=== PATIENT | male | born 1955 | race Caucasian/White ===

== ENCOUNTER 2016-03-13 17:24 | Emergency (ER) | payer MEDICARE, MEDICAID ==
[~2016-03-13] VITALS: Ht 180.3 cm; Wt 109.1 kg
[~2016-03-13 17:24] MED LIST: ALBUTEROL1.25 MG/3 IH; ASPI325T6; ASPIRIN 81M81 MG/TA2 PO; BYSTOLIC5 MG PO; CANA100T PO; CRESTOR20 MG PO; DAZIDOX10 MG PO; DIABETA 5MG5 MG/TAB PO; DILAUDID 4MG TAB4 MG PO; KLOR-CON M2020 MEQ PO; LANTUS100 U/ML SQ; LASIX 20MG TABL20 MG PO; LIDOCAINE HCL100 M1 PO; LOPRESSOR 225 MG/TAB PO; LORTAB 10/500 51 TAB PO; LOVAZA1 GM PO; LOVENOX150 MG/ML SC; NEURONTIN100 MG/CAP PO; NEURONTIN300 MG/CAP PO; NEURONTIN600 MG/TAB PO; NIASPAN 500MG500 MG PO; NITRO-DUR0.4 MG/PAT TD; NITROSTAT0.4 MG/TAB SL; NOVLOG SQ; NOVOLOG 100U100 U/M1 SC; NOVOLOG 100U100 U/M1 SQ; PERCOCET 325 MG1 TAB PO; PLAVIX 75MG TAB75 MG PO; PRINIVIL10 MG PO; PRINIVIL5 MG PO; PROAIR HFA0.09 MG/AC IH; RANEXA 500MG T500 MG PO; XANAX 1MG1 MG PO; XANAX2 MG PO; XARELTO20 MG PO
[2016-03-13 17:28] VITALS: TEMP 98
[2016-03-13 18:34] LABS: ADJUSTED CALCIUM 9.7 mg/dL (8.4-10.2); ALANINE AMINOTRANSFERASE 137 U/L (21-72); ALBUMIN 4.5 gm/dL (3.5-5.0); ALKALINE PHOSPHATASE 162 U/L (50-136); ANION GAP 13 mmol/L (7-16); BASO # 0.1 (0.0-0.2); BILIRUBIN,TOTAL 1.8 mg/dL (0.0-1.0); BLOOD UREA NITROGEN 11 mg/dL (9-20); C-REACTIVE PROTEIN 1.3 mg/dL (0.0-0.9); CALCIUM 10.1 mg/dL (8.4-10.2); CARBON DIOXIDE 23 mmol/L (22-30); CHLORIDE 94 mmol/L (98-107); EOS # 0.3 (0.0-0.7); EOS % 2.4 % (0-4.0); GLUCOSE 167 mg/dL (74-106); GRAN # 7.7 (1.4-6.5); GRAN % 62.4 % (42.2-75.2); HEMATOCRIT 48.8 % (42.0-52.0); HEMOGLOBIN 17.7 g/dl (13.5-18.0); LIPASE 110 U/L (23-300); LYMPH # 3.6 (1.2-3.4); LYMPH % 29.4 % (20.0-51.0); MEAN CELL VOLUME 79 fl (80.0-100.0); MEAN CORPUSCULAR HEMOGLOBIN 29 pg (27.0-31.0); MEAN CORPUSCULAR HGB CONC 36 g/dl (33.0-37.0); MEAN PLATELET VOLUME 8.4 fl (7.4-10.4); MONO # 0.5 (0.1-0.6); MONO % 4.3 % (1.7-9.3); PLATELET COUNT 305 K/mm3 (130-400); POTASSIUM 4.5 mmol/L (3.4-5.0); RED BLOOD COUNT 6.15 M/mm3 (4.20-5.60); REDCELL DISTRIBUTION WIDTH-CV 14.6 % (11.5-14.5); SODIUM 130 mmol/L (137-145); TOTAL PROTEIN 9.1 gm/dL (6.4-8.2); WHITE BLOOD COUNT 12.3 K/mm3 (4.8-10.8)
[2016-03-13 18:41] LABS: TROPONIN-I < 0.012 ng/mL (0.000-0.034)
[2016-03-13 20:25] LABS: PH 6 (5-8); SQUAMOUS EPITHELIAL None Seen /hpf; URINE APPEARANCE Clear; URINE BACTERIA Rare /hpf; URINE BILIRUBIN Negative (NEGATIVE); URINE BLOOD Negative (NEGATIVE); URINE COLOR Yellow; URINE GLUCOSE Negative (NEGATIVE); URINE KETONE Negative (NEGATIVE); URINE RBC 0-2 /hpf; URINE UROBILINOGEN >=4.0 mg/dL (NEGATIVE)
[2016-03-13 20:57] VITALS: BP 141/101; PULSE 84
== END 2016-03-13 20:58 | disposition home or self-care (01) ==
LOC: COL.ER 17:24
PROVIDERS: Emergency Medicine
DX: M54.5 Low back pain (principal); R10.32 Left lower quadrant pain; I10 Essential (primary) hypertension; F17.210 Nicotine dependence, cigarettes, uncomplicated; I25.10 Atherosclerotic heart disease of native coronary artery without angina pectoris; Z95.5 Presence of coronary angioplasty implant and graft
CPT/HCPCS: J1170; J2405; J7030

== ENCOUNTER 2016-04-30 13:08 | Emergency (ER) | payer MEDICARE ==
[~2016-04-30] VITALS: Ht 180.3 cm; Wt 105.9 kg
[2016-04-30 13:10] VITALS: BP 134/92; TEMP 98.4
[2016-04-30 14:33] VITALS: PULSE 76
== END 2016-04-30 14:53 | disposition home or self-care (01) ==
LOC: COL.ER 13:08
DX: M54.5 Low back pain (principal); G89.29 Other chronic pain; M62.830 Muscle spasm of back; E10.8 Type 1 diabetes mellitus with unspecified complications; Z79.4 Long term (current) use of insulin; I10 Essential (primary) hypertension; F17.210 Nicotine dependence, cigarettes, uncomplicated
CPT/HCPCS: J1170; J2550

== ENCOUNTER → 2016-05-14 | Outpatient (CLI) | payer MEDICARE ==
[~2016-05-14] MED LIST changes: +DOXYCYCLINE 10100 MG PO; +KLOR-CON 1010 MEQ PO; +ZESTRIL 5MG5 MG PO
== END ==
LOC: COL.RAD 08:15
DX: M51.26 Other intervertebral disc displacement, lumbar region (principal); R93.7 Abnormal findings on diagnostic imaging of other parts of musculoskeletal system

== ENCOUNTER 2016-05-15 09:53 | Emergency (ER) | payer MEDICARE ==
[~2016-05-15] VITALS: Ht 182.9 cm; Wt 104.5 kg
[~2016-05-15 09:53] MED LIST changes: -DOXYCYCLINE 10100 MG PO; -KLOR-CON 1010 MEQ PO; -ZESTRIL 5MG5 MG PO
[2016-05-15 10:01] VITALS: BP 147/74; TEMP 97.7
[2016-05-15] MEDS ORDERED: DOXYCYCLINE 10100 MG PO (10:25)
[2016-05-15 11:01] VITALS: PULSE 78
== END 2016-05-15 11:47 | disposition home or self-care (01) ==
LOC: COL.ER 09:53
DX: L05.91 Pilonidal cyst without abscess (principal); E11.9 Type 2 diabetes mellitus without complications; I10 Essential (primary) hypertension; I25.10 Atherosclerotic heart disease of native coronary artery without angina pectoris; F17.210 Nicotine dependence, cigarettes, uncomplicated; Z79.4 Long term (current) use of insulin
CPT/HCPCS: J1170; J2405

== ENCOUNTER 2016-05-18 09:06 | Emergency (ER) | payer MEDICARE ==
[~2016-05-18] VITALS: Ht 180.3 cm; Wt 107.4 kg
[~2016-05-18 09:06] MED LIST changes: +DOXYCYCLINE 10100 MG PO
[2016-05-18 09:15] VITALS: TEMP 97.6
[2016-05-18 10:02] LABS: BASO # 0.1 (0.0-0.2); BASO % 0.8 % (0.0-2.0); EOS # 0.1 (0.0-0.7); EOS % 1.5 % (0-4.0); GRAN # 6.3 (1.4-6.5); GRAN % 68.2 % (42.2-75.2); HEMATOCRIT 43.7 % (42.0-52.0); HEMOGLOBIN 15.7 g/dl (13.5-18.0); LYMPH # 2.2 (1.2-3.4); LYMPH % 23.3 % (20.0-51.0); MEAN CELL VOLUME 85 fl (80.0-100.0); MEAN CORPUSCULAR HEMOGLOBIN 30 pg (27.0-31.0); MEAN CORPUSCULAR HGB CONC 36 g/dl (33.0-37.0); MEAN PLATELET VOLUME 8.7 fl (7.4-10.4); MONO # 0.5 (0.1-0.6); MONO % 5.3 % (1.7-9.3); PLATELET COUNT 193 K/mm3 (130-400); RED BLOOD COUNT 5.16 M/mm3 (4.20-5.60); REDCELL DISTRIBUTION WIDTH-CV 14.1 % (11.5-14.5); WHITE BLOOD COUNT 9.2 K/mm3 (4.8-10.8)
[2016-05-18 10:19] LABS: ADJUSTED CALCIUM 9.3 mg/dL (8.4-10.2); ALBUMIN 3.9 gm/dL (3.5-5.0); BILIRUBIN,TOTAL 0.9 mg/dL (0.0-1.0); C-REACTIVE PROTEIN 1.5 mg/dL (0.0-0.9); CALCIUM 9.2 mg/dL (8.4-10.2); CREATININE, serum 0.58 mg/dL (0.66-1.25); POTASSIUM 4.3 mmol/L (3.4-5.0); TOTAL PROTEIN 7.6 gm/dL (6.4-8.2)
[2016-05-18 10:24] LABS: ERYTHROCYTE SEDIMENTATION RATE 11 mm/hr (0-30)
[2016-05-18 10:55] LABS: PH 7 (5-8); SQUAMOUS EPITHELIAL None Seen /hpf; URINE APPEARANCE Clear; URINE BACTERIA None Seen /hpf; URINE BILIRUBIN Negative (NEGATIVE); URINE BLOOD Negative (NEGATIVE); URINE COLOR Yellow; URINE GLUCOSE 3+ (NEGATIVE); URINE KETONE Negative (NEGATIVE); URINE RBC 0-2 /hpf; URINE UROBILINOGEN Negative (NEGATIVE); URINE WBC None Seen /hpf
[2016-05-18] MEDS ORDERED: NEURONTIN300 MG/CAP PO (11:23)
[2016-05-18] MEDS ORDERED: CRESTOR20 MG PO (11:23)
[2016-05-18] MEDS ORDERED: BYSTOLIC5 MG PO (11:23)
[2016-05-18] MEDS ORDERED: ZESTRIL 5MG5 MG PO (11:24)
[2016-05-18] MEDS ORDERED: LASIX 20MG TABL20 MG PO (11:24)
[2016-05-18] MEDS ORDERED: KLOR-CON 1010 MEQ PO (11:24)
[2016-05-18] MEDS ORDERED: DAZIDOX10 MG PO (11:25)
[2016-05-18] MEDS ORDERED: PLAVIX 75MG TAB75 MG PO (11:25)
[2016-05-18] MEDS ORDERED: XANAX2 MG PO (11:26)
[2016-05-18] MEDS ORDERED: LANTUS100 U/ML SQ (11:26)
[2016-05-18] MEDS ORDERED: NOVOLOG 100U100 U/M1 SQ (11:27)
[2016-05-18] MEDS ORDERED: DILAUDID 4MG TAB4 MG PO (11:28)
[2016-05-18 12:03] VITALS: BP 127/79; PULSE 69
== END 2016-05-18 12:04 | disposition short-term general hospital (02) ==
LOC: COL.ER 09:06
PROVIDERS: Emergency Medicine
DX: M46.46 Discitis, unspecified, lumbar region (principal); E11.9 Type 2 diabetes mellitus without complications; I11.0 Hypertensive heart disease with heart failure; I50.9 Heart failure, unspecified
CPT/HCPCS: J0696; J1170; J2405; J3370; J7030; J7040

== ENCOUNTER 2016-06-26 20:57 | Emergency (ER) | payer MEDICARE, MEDICAID ==
[~2016-06-26] VITALS: Ht 188 cm; Wt 100.0 kg
[~2016-06-26 20:57] MED LIST changes: +KLOR-CON 1010 MEQ PO; +ZESTRIL 5MG5 MG PO
[2016-06-26 21:04] VITALS: TEMP 98.9
[2016-06-26 22:01] LABS: BASO # 0.1 (0.0-0.2); EOS # 0.3 (0.0-0.7); EOS % 4.4 % (0-4.0); GRAN # 4.2 (1.4-6.5); GRAN % 57.6 % (42.2-75.2); HEMATOCRIT 43.6 % (42.0-52.0); HEMOGLOBIN 15.1 g/dl (13.5-18.0); LYMPH # 2.3 (1.2-3.4); LYMPH % 32.1 % (20.0-51.0); MEAN CELL VOLUME 88 fl (80.0-100.0); MEAN CORPUSCULAR HEMOGLOBIN 31 pg (27.0-31.0); MEAN CORPUSCULAR HGB CONC 35 g/dl (33.0-37.0); MEAN PLATELET VOLUME 9.2 fl (7.4-10.4); MONO # 0.3 (0.1-0.6); MONO % 4.5 % (1.7-9.3); PLATELET COUNT 133 K/mm3 (130-400); RED BLOOD COUNT 4.95 M/mm3 (4.20-5.60); REDCELL DISTRIBUTION WIDTH-CV 14.4 % (11.5-14.5); WHITE BLOOD COUNT 7.3 K/mm3 (4.8-10.8)
[2016-06-26 22:13] LABS: ADJUSTED CALCIUM 9.2 mg/dL (8.4-10.2); ALANINE AMINOTRANSFERASE 121 U/L (21-72); ALBUMIN 3.6 gm/dL (3.5-5.0); ALKALINE PHOSPHATASE 123 U/L (50-136); ANION GAP 10 mmol/L (7-16); BILIRUBIN,TOTAL 0.8 mg/dL (0.0-1.0); BLOOD UREA NITROGEN 10 mg/dL (9-20); CALCIUM 8.9 mg/dL (8.4-10.2); CARBON DIOXIDE 28 mmol/L (22-30); CHLORIDE 99 mmol/L (98-107); CREATININE, serum 0.68 mg/dL (0.66-1.25); GLUCOSE 202 mg/dL (74-106); LIPASE 81 U/L (23-300); POTASSIUM 4.1 mmol/L (3.4-5.0); SODIUM 136 mmol/L (137-145); TOTAL PROTEIN 6.8 gm/dL (6.4-8.2)
[2016-06-26 22:24] LABS: B-TYPE NATRIURETIC PEPTIDE 553 pg/mL (0-125)
[2016-06-26 22:41] LABS: TROPONIN-I < 0.012 ng/mL (0.000-0.034)
[2016-06-27 00:47] VITALS: BP 129/59; PULSE 64
== END 2016-06-27 00:48 | disposition home or self-care (01) ==
LOC: COL.ER 20:57
PROVIDERS: Emergency Medicine
DX: R07.89 Other chest pain (principal); R60.0 Localized edema; R07.1 Chest pain on breathing; R06.02 Shortness of breath; I11.0 Hypertensive heart disease with heart failure; I50.9 Heart failure, unspecified; I25.2 Old myocardial infarction; I25.10 Atherosclerotic heart disease of native coronary artery without angina pectoris; Z86.711 Personal history of pulmonary embolism; E78.5 Hyperlipidemia, unspecified; I82.511 Chronic embolism and thrombosis of right femoral vein; I82.531 Chronic embolism and thrombosis of right popliteal vein; I82.5Z1 Chronic embolism and thrombosis of unspecified deep veins of right distal lower extremity; Z79.02 Long term (current) use of antithrombotics/antiplatelets
CPT/HCPCS: J1170; Q9967

== ENCOUNTER → 2016-09-02 | Outpatient (CLI) | payer MEDICARE | LOC: COL.RAD 14:00 | DX: M48.07 Spinal stenosis, lumbosacral region (principal); M51.27 Other intervertebral disc displacement, lumbosacral region; M47.816 Spondylosis without myelopathy or radiculopathy, lumbar region; I71.4 Abdominal aortic aneurysm, without rupture; R60.0 Localized edema ==

== ENCOUNTER 2017-01-17 11:06 | Emergency (ER) | payer MEDICARE, MEDICAID ==
[~2017-01-17] VITALS: Ht 182.9 cm; Wt 113.6 kg
[2017-01-17 11:11] VITALS: TEMP 97.2
[2017-01-17] MEDS ORDERED: ASPIRIN 81M81 MG/TA2 PO (11:20)
[2017-01-17 11:40] LABS: BASO # 0.1 (0.0-0.2); BASO % 0.7 % (0.0-2.0); EOS # 0.3 (0.0-0.7); EOS % 3.3 % (0-4.0); GRAN # 5.1 (1.4-6.5); GRAN % 62.8 % (42.2-75.2); HEMATOCRIT 43.2 % (42.0-52.0); HEMOGLOBIN 15.2 g/dl (13.5-18.0); LYMPH # 2.3 (1.2-3.4); MEAN CELL VOLUME 89 fl (80.0-100.0); MEAN CORPUSCULAR HEMOGLOBIN 31 pg (27.0-31.0); MEAN CORPUSCULAR HGB CONC 35 g/dl (33.0-37.0); MEAN PLATELET VOLUME 9.2 fl (7.4-10.4); MONO # 0.4 (0.1-0.6); MONO % 4.7 % (1.7-9.3); PLATELET COUNT 181 K/mm3 (130-400); RED BLOOD COUNT 4.88 M/mm3 (4.20-5.60); WHITE BLOOD COUNT 8.1 K/mm3 (4.8-10.8)
[2017-01-17 11:46] LABS: INR 1.1 (0.8-3.0); PROTHROMBIN TIME 12.2 SECONDS (9.7-12.8)
[2017-01-17 11:48] LABS: ADJUSTED CALCIUM 9.3 mg/dL (8.4-10.2); ALANINE AMINOTRANSFERASE 42 U/L (21-72); ALBUMIN 3.8 gm/dL (3.5-5.0); ALKALINE PHOSPHATASE 105 U/L (50-136); ANION GAP 8 mmol/L (7-16); BILIRUBIN,TOTAL 0.6 mg/dL (0.0-1.0); BLOOD UREA NITROGEN 18 mg/dL (9-20); CALCIUM 9.1 mg/dL (8.4-10.2); CARBON DIOXIDE 24 mmol/L (22-30); CHLORIDE 98 mmol/L (98-107); CREATININE, serum 0.78 mg/dL (0.66-1.25); POTASSIUM 4.7 mmol/L (3.4-5.0); SODIUM 130 mmol/L (137-145); TOTAL PROTEIN 6.9 gm/dL (6.4-8.2)
[2017-01-17 11:49] LABS: PARTIAL THROMBOPLASTIN TIME 29.6 SECONDS (26.0-37.0)
[2017-01-17 11:54] LABS: GLUCOSE 459 mg/dL (74-106)
[2017-01-17 12:01] LABS: TROPONIN-I < 0.012 ng/mL (0.000-0.034)
[2017-01-17 16:26] VITALS: BP 102/65; PULSE 62
== END 2017-01-17 16:41 | disposition home or self-care (01) ==
LOC: COL.ER 11:06
PROVIDERS: Family Medicine
DX: R07.9 Chest pain, unspecified (principal); I11.0 Hypertensive heart disease with heart failure; I50.9 Heart failure, unspecified; I25.2 Old myocardial infarction; E11.9 Type 2 diabetes mellitus without complications; I25.10 Atherosclerotic heart disease of native coronary artery without angina pectoris; Z95.5 Presence of coronary angioplasty implant and graft; Z79.82 Long term (current) use of aspirin; Z79.4 Long term (current) use of insulin; Z79.02 Long term (current) use of antithrombotics/antiplatelets
CPT/HCPCS: J1170; J1940

== ENCOUNTER 2018-06-27 12:25 | Emergency (ER) | payer MEDICARE, MEDICAID ==
[~2018-06-27] VITALS: Ht 177.8 cm; Wt 121.8 kg
[2018-06-27 12:33] VITALS: TEMP 97.8
[2018-06-27 12:58] LABS: BASO # 0.1 (0.0-0.2); EOS # 0.2 (0.0-0.7); GRAN # 5.2 (1.4-6.5); GRAN % 65.1 % (42.2-75.2); HEMATOCRIT 45.9 % (42.0-52.0); HEMOGLOBIN 15.4 g/dl (13.5-18.0); LYMPH # 2.1 (1.2-3.4); LYMPH % 26.4 % (20.0-51.0); MEAN CELL VOLUME 82 fl (80.0-100.0); MEAN CORPUSCULAR HEMOGLOBIN 28 pg (27.0-31.0); MEAN CORPUSCULAR HGB CONC 34 g/dl (33.0-37.0); MEAN PLATELET VOLUME 8.9 fl (7.4-10.4); MONO # 0.3 (0.1-0.6); MONO % 4.2 % (1.7-9.3); PLATELET COUNT 157 K/mm3 (130-400); RED BLOOD COUNT 5.59 M/mm3 (4.20-5.60); REDCELL DISTRIBUTION WIDTH-CV 16.3 % (11.5-14.5)
[2018-06-27 13:05] LABS: INR 1.2 (0.8-3.0); PROTHROMBIN TIME 13.6 SECONDS (9.7-12.8)
[2018-06-27 13:08] LABS: ALANINE AMINOTRANSFERASE < 6 U/L (21-72); ALBUMIN 3.4 gm/dL (3.5-5.0); ALKALINE PHOSPHATASE 91 U/L (50-136); ANION GAP 8 mmol/L (7-16); AST,SGOT 13 U/L (15-37); BILIRUBIN,TOTAL 0.5 mg/dL (0.0-1.0); BLOOD UREA NITROGEN 11 mg/dL (9-20); CALCIUM 8.5 mg/dL (8.4-10.2); CARBON DIOXIDE 23 mmol/L (22-30); CHLORIDE 105 mmol/L (98-107); CREATININE, serum 0.79 (0.66-1.25); GLUCOSE 222 mg/dL (74-106); LIPASE 148 U/L (23-300); POTASSIUM 4.2 mmol/L (3.4-5.0); SODIUM 135 mmol/L (137-145)
[2018-06-27 13:23] LABS: TROPONIN-I < 0.012 ng/mL (0.000-0.035)
[2018-06-27 16:07] VITALS: BP 115/78; PULSE 69
== END 2018-06-27 15:59 | disposition left against medical advice (07) ==
LOC: COL.ER 12:25
PROVIDERS: Emergency Medicine
DX: R07.89 Other chest pain (principal); E11.9 Type 2 diabetes mellitus without complications; I10 Essential (primary) hypertension; I25.10 Atherosclerotic heart disease of native coronary artery without angina pectoris; F17.210 Nicotine dependence, cigarettes, uncomplicated; Z95.9 Presence of cardiac and vascular implant and graft, unspecified; Z79.02 Long term (current) use of antithrombotics/antiplatelets; Z79.82 Long term (current) use of aspirin; Z79.4 Long term (current) use of insulin
CPT/HCPCS: J1170; J2405

== ENCOUNTER 2018-07-14 11:34 | Day surgery (SDC) | payer MEDICARE, MEDICAID ==
[~2018-07-14] VITALS: Ht 177.8 cm; Wt 114.5 kg
[2018-07-14] VITALS (9 sets, daily range): BP systolic 94–139; BP diastolic 54–86; PULSE 66–76; TEMP 97.3–98.6
[~2018-07-14 11:34] MED LIST changes: +CRESTOR40 MG PO; +ZESTRIL 10MG10 MG PO; -ZESTRIL 5MG5 MG PO
[2018-07-14 12:20] LABS: HEMATOCRIT 46.6 % (42.0-52.0); HEMOGLOBIN 16.2 g/dl (13.5-18.0); MEAN CELL VOLUME 82 fl (80.0-100.0); MEAN CORPUSCULAR HEMOGLOBIN 29 pg (27.0-31.0); MEAN CORPUSCULAR HGB CONC 35 g/dl (33.0-37.0); MEAN PLATELET VOLUME 8.9 fl (7.4-10.4); PLATELET COUNT 142 K/mm3 (130-400); RED BLOOD COUNT 5.69 M/mm3 (4.20-5.60); REDCELL DISTRIBUTION WIDTH-CV 16.6 % (11.5-14.5)
[2018-07-14 12:24] LABS: INR 1.2 (0.8-3.0); PROTHROMBIN TIME 14.3 SECONDS (9.7-12.8)
[2018-07-14 12:30] LABS: CALCIUM 9.3 mg/dL (8.4-10.2); CREATININE, serum 0.95 (0.66-1.25); POTASSIUM 4.8 mmol/L (3.4-5.0)
[2018-07-14] MEDS ORDERED: RANEXA 500MG T500 MG PO (13:09)
[2018-07-14] MEDS ORDERED: TRELEGY ELLIPT1 EACH IH (13:10)
[2018-07-14] MEDS ORDERED: IPRATROPIUM BROM3 M1 IH (13:11)
[2018-07-14] MEDS ORDERED: NIASPAN 500MG500 MG PO (13:11)
[2018-07-14] MEDS ORDERED: XARELTO20 MG PO (13:11)
[2018-07-14] MEDS ORDERED: COREG 6.256.25 MG/TA PO (13:12)
[2018-07-14] MEDS ORDERED: HUMALOG100 U/ML SQ (13:17)
--- NOTE | 2018-07-14 15:49 | NUR ---
Report received pt to transfer upstairs.
--- NOTE | 2018-07-14 15:53 | NUR ---
PLEASE SEE MERGE FOR ALL MEDICATION ADMINISTRATION TIMES, SEDATION ASSESSMENTS DURING AND POST PROCEDURE.
--- NOTE | 2018-07-14 17:23 | NUR ---
Pt transported to room 309, report given to Vernon BILLY and his groin site is clean dry intact, gauze is dry the surrounding tissue is soft without signs of bleeding or hematoma.
--- NOTE | 2018-07-14 17:41 | NUR ---
REPORT RECEIVED FROM SWEETIE BILLY FROM THE BANK SALES AND SERVICE MANAGER.PATIENT STABLE.AWAKE AND ORIENTED X3.AGIO SEAL TO RIGHT GROIN.NO HEMATOMA NOTED.FLAT TIME STARTED AT 1700.2 STENTS PLACED.VITAL SIGNS STABLE AT THIS TIME.C/O OF CHRONIC BACK PAIN.WILL CONTACT FOR AN ORDER OF HOME MED.NO OTHER NEEDS VOICED.POST OPS STARTED.CALL LIGHT IN REACH
--- NOTE | 2018-07-14 19:12 | NUR ---
PT REMAIN STABLE.FLAT TIME COMPLETED AT THIS TIME.RIGHT FEMORAL CDI.DRESSING INTACT.NO HEMATOMA NOTED.NO OTHER NEEDS VOICED.
--- NOTE | 2018-07-14 19:14 | NUR ---
REPORT GIVEN TO MARIAJOSE ZULETA.
--- NOTE | 2018-07-14 19:45 | NUR ---
Shift assessment complete. Pt resting in bed, awake, a&o, cooperative c cares. Pt c/o continued chronic pain to back et legs, reports recent dilaudid admin helped pain in back but continues to rate pain to legs "10/17"; provided c home dose Oxycodone per pt request. Pt denies other c/o. INT patent. Tele in place. Card cath site noted to R groin, site s edema/drainage/ecchymosis, gauze/tegaderm dressing C/D/I. Pt amb ind to BR, site remained unchanged. Pt denies other needs or c/o. Call light in reach, will monitor.
[2018-07-15 03:44] VITALS: BP 103/64; PULSE 53; TEMP 97.9
--- NOTE | 2018-07-15 06:18 | NUR ---
Pt resting in bed, condition unchanged. R groin site remains s complication. VS WNL. Pt c/o chronic back/leg pain throughout shift; pain well controlled c PRN pain med upon request per home regimine. Pt s needs at this time. Call light in reach.
[2018-07-15 08:44] VITALS: BP 104/59; PULSE 60; TEMP 98
--- NOTE | 2018-07-15 08:58 | NUR ---
Assessment complete.patient awale,a/ox3.denies pain or discomfort to right femoral groin site.incision is CDI.no hematoma noted.minimal drainage noted to gauze.prn percocet given for c/o chronic back pain.patient denies chest pain or palpitations.no other needs voiced at this time.call light in reach
--- NOTE | 2018-07-15 10:35 | NUR ---
Pt calls and asks to speak with the charge nurse. This nurse enters room, pt sitting up in chair, states, "I don't want you to feel that this is directed toward you but I am very upset. I called at 0945 and asked for a Xanax and was told the nurse would be notified then I waited 20 minutes and called again at 1005 and was told the same thing, now another 20 minutes has passed and I and called to ask for you. I am filing a formal complaint. This hospital has gone down hill since it was [facility]." This nurse apologizes to pt and informs him that his primary nurse is pulling the medication and on her way in. extermination supervisor notified of pt's complaint.
--- NOTE | 2018-07-15 11:15 | NUR ---
Visited, listened, amd prayed with the patient. He was supposed to be released today.
--- NOTE | 2018-07-15 11:30 | NUR ---
Pt requests pain medication which is administered per orders. Pt asking about the doctor for discharge. This nurse informs pt that rounding linker up is in procedure but should be here soon. Pt states, "At noon, I'm getting dressed and walking out of here with or without my IV or paperwork. My doctor said he would see me in the morning to discharge me but he lied so he's fired." This nurse assures pt that his nurse and the rounding doctor would be notified. This nurse notifies primary nurse and clinical practitioner linker up.
--- NOTE | 2018-07-15 12:05 | NUR ---
This nurse witnesses pt leaving hospital with belongings. Primary nurse notified.
--- NOTE | 2018-07-15 12:08 | NUR ---
This RN discontinued pt's iv and telemetry.pt reports "i will leave at with or without paperwork.I am not waiting for paperwork.".This RN attempted to let patient know that is finalizing discharge orders but patient walked out.MARIAJOSE Padron witnessed patient walking out of hospital.
--- NOTE | 2018-07-15 12:12 | NUR ---
This RN was unable to review discharge instructions with patient because he left without discharge paperwork.
--- NOTE | 2018-07-15 12:13 | NUR ---
Dr. Barrow Notified of patient leaving.
== END 2018-07-15 12:00 | disposition home or self-care (01) ==
LOC: COL.CAR 11:34 → MEDICAL 17:16 → COL.CAR 07-15 12:00
PROVIDERS: Internal Medicine Cardiovascular Disease
DX: I25.118 Atherosclerotic heart disease of native coronary artery with other forms of angina pectoris (principal); I25.82 Chronic total occlusion of coronary artery; I10 Essential (primary) hypertension; E78.5 Hyperlipidemia, unspecified; I11.0 Hypertensive heart disease with heart failure; I50.22 Chronic systolic (congestive) heart failure; G47.33 Obstructive sleep apnea (adult) (pediatric); J44.9 Chronic obstructive pulmonary disease, unspecified; E11.42 Type 2 diabetes mellitus with diabetic polyneuropathy; I25.2 Old myocardial infarction; F17.210 Nicotine dependence, cigarettes, uncomplicated; Z91.013 Allergy to seafood; Z95.5 Presence of coronary angioplasty implant and graft; Z79.02 Long term (current) use of antithrombotics/antiplatelets; Z79.4 Long term (current) use of insulin; Z79.01 Long term (current) use of anticoagulants; Z90.49 Acquired absence of other specified parts of digestive tract; Z88.6 Allergy status to analgesic agent; Z86.711 Personal history of pulmonary embolism; Z86.718 Personal history of other venous thrombosis and embolism; Z82.49 Family history of ischemic heart disease and other diseases of the circulatory system
CPT/HCPCS: OP; C9600; J1644; J1815; J2250; J3010; Q9967